=== PATIENT | female | born 1995 | race Caucasian/White ===

== ENCOUNTER 2020-10-26 21:13 | Emergency (ER) | payer BC, OTHER ==
[~2020-10-26] VITALS: Ht 154.9 cm; Wt 49.9 kg
[2020-10-26 21:20] VITALS: BP_SYST 145
--- NOTE | 2020-10-26 21:20 | NUR ---
PT TO BED 7 FOR EVALUATION.
--- NOTE | 2020-10-26 21:30 | NUR ---
PT AAO AND AMBULATORY REPORTING LEFT SIDED ABDOMINAL PAIN TODAY AFTER SHE STAYED UP ALL NIGHT STUDYING AND NOT SLEEPING. SHE REPORTS THAT SHE WAS EATING BAD FOODS THAT CAUSED HER GAS/ABDOMINAL PAIN. PT REPORTS THAT SHE HAD BM EARLIER TODAY. PT REPORTS HIGH ANXIETY AND STRESS BECAUSE SHE IS GRADU[place] NEXT WEEK. PT RATES CURRENT PAIN LEVEL 7/10 ON PAIN SCALE.
--- NOTE | 2020-10-26 21:32 | NUR ---
DR. KINGSLEY AT BEDSIDE TO ASSESS.
[2020-10-26] MEDS ORDERED: KETOROLAC TROMETHAMINE 30 MG VIAL IM ONE (21:45)
[2020-10-26] MEDS ORDERED: KETOROLAC TROMETHAMINE 30 MG VIAL ONE (21:57)
--- NOTE | 2020-10-26 22:11 | NUR ---
Pt medicated for pain as ordered, well tolerated
[2020-10-26 22:12] LABS: BILIRUBIN,URINE NEGATIVE (NEGATIVE); CLARITY/URINE CLEAR (CLEAR); COLOR,URINE YELLOW (YELLOW); GLUCOSE,URINE NEGATIVE (NEGATIVE); KETONES,URINE 2+ (NEGATIVE); LEUKOCYTE ESTERASE ,URINE NEGATIVE (NEGATIVE); NITRITE, URINE NEGATIVE (NEGATIVE); PH,URINE 7.5 (5.0-8.0); PROTEIN URINE NEGATIVE (NEGATIVE); UROBILINOGEN,URINE 0.2 (0.2-1.0)
[2020-10-26 22:15] LABS: BLOOD, URINE TRACE (NEGATIVE)
[2020-10-26 22:23] LABS: BACTERIA,URINE FEW /HPF (None Seen); CALCIUM OXALATE CRYSTALS,UR None Seen /HPF (None Seen); CALCIUM PHOSPHATE CRYSTALS,UR None Seen /HPF (None Seen); COARSE GRANULAR CASTS,URINE None Seen /LPF (None Seen); FINE GRANULAR CASTS,URINE None Seen /LPF (None Seen); HYALINE CASTS, URINE None Seen /LPF (None Seen); OTHER CASTS, URINE None Seen /LPF (None Seen); OTHER CRYSTALS,URINE None Seen /HPF (None Seen); TRICHOMONAS,URINE None Seen /HPF (None Seen); TRIPLE PHOSPHATE CRYSTAL,UR None Seen /HPF (None Seen); URIC ACID CRYSTALS,URINE None Seen /HPF (None Seen); URINE AMORPHOUS PHOSPHATES None Seen /HPF (None Seen); URINE AMORPHOUS URATE None Seen /HPF (None Seen); WAXY CASTS,URINE None Seen /LPF (None Seen); WBC,URINE 0-3 /HPF (0-3); YEAST,URINE None Seen /HPF (None Seen)
[2020-10-26 22:24] LABS: MUCUS,URINE None Seen /LPF (None Seen)
--- NOTE | 2020-10-26 22:36 | NUR ---
report given to Gala GUILLORY
--- NOTE | 2020-10-26 22:41 | NUR ---
PT PAIN IMPROVED SIGNIFICANTLY DOWN TO 3/10 ON PAIN SCALE. PT AWAITING DISPOSITION.
--- NOTE | 2020-10-26 23:27 | NUR ---
LAB AT BEDSIDE TO OBTAIN BLOOD SPECIMEN
[2020-10-26 23:34] LABS: BASOPHILS % (AUTO) 0.3 % (0.0-2.0); EOSINOPHILS # (AUTO) 0.5 K/uL (0.0-0.4); EOSINOPHILS % (AUTO) 4.3 % (0.0-4.0); HEMOGLOBIN 12.9 g/dL (12.0-16.0); LYMPHOCYTES # (AUTO) 0.9 K/uL (1.0-5.5); LYMPHOCYTES % (AUTO) 6.7 % (20.5-51.5); MEAN CORPUSCULAR HEMOGLOBIN 29 pg (27-31); MEAN CORPUSCULAR HGB CONC 33 % (32-36); MEAN CORPUSCULAR VOLUME 88 fL (79.0-98.0); MONOCYTES # (AUTO) 0.5 K/uL (0.0-1.0); MONOCYTES % (AUTO) 3.6 % (1.7-9.3); NEUTROPHILS # (AUTO) 10.9 K/uL (1.8-7.7); NEUTROPHILS % (AUTO) 85.1 % (40.0-70.0); PLATELET COUNT (AUTO) 262 K/uL (130-430); RED BLOOD CELL COUNT(AUTO) 4.44 MIL/uL (4.2-6.2); RED CELL DISTRIBUTION WIDTH 12.8 % (9.0-15.0); WHITE BLOOD COUNT (AUTO) 12.9 K/uL (4.8-10.8)
[2020-10-26 23:45] LABS: CREATININE 0.72 mg/dL (0.55-1.30); POTASSIUM 3.8 mmol/L (3.5-5.1)
[2020-10-26 23:51] LABS: ALBUMIN 3.9 g/dL (3.4-4.8); TOTAL BILIRUBIN 0.3 mg/dL (0.0-1.0)
[2020-10-27] MEDS ORDERED: IBUP-1969 PO (00:06)
[2020-10-27 00:12] VITALS: BP_SYST 145
--- NOTE | 2020-10-27 00:12 | NUR ---
Patient given written and verbal discharge instructions and verbalizes understanding. DR. GUADALUPE COSTA MD discussed with patient the results and treatment provided. Patient in stable condition. ID arm band removed. Rx SENT PER MD. Patient educated on pain management and to follow up with PMD. Pain Scale 0/10. Opportunity for questions provided and answered. Medication side effect fact sheet provided.
== END 2020-10-27 00:12 | disposition home or self-care (01) ==
LOC: SED 21:13
DX: R10.9 Unspecified abdominal pain (principal)
CPT/HCPCS: 36415; 74021; 80053; 81000; 81025; 83690; 85025; 96372; 99284; J1885